=== PATIENT | female | born 2000 | race Two or more races ===

== ENCOUNTER → 2023-05-28 | Emergency (ER) | payer BC ==
[~2023-05-28] VITALS: Ht 162.6 cm; Wt 51.7 kg
[~2023-05-28] MED LIST: 0.9 % SODIUM CHLORIDE 1,000 ML IV SCH; DEXTROSE 5 % AND 0.9 % NACL 1,000 ML IV SCH; FAMOtidine 10 MG/ML (4ML VIAL) IV SCH; KETOROLAC TROMETHAMINE 30 MG VIAL IV ONE; ONDANSETRON HCL 2 MG/ML VIAL IV SCH
[2023-05-28 18:19] LABS: HEMATOCRIT 34.3 % (36.0-45.00); HEMOGLOBIN 11.4 g/dL (12.0-15.00); MEAN CELL VOLUME 85.4 fL (80.00-100.00); MEAN CORPUSCULAR HEMOGLOBIN 28.4 pg (27.00-32.0); MEAN CORPUSCULAR HGB CONC 33.2 g/dl (32.0-36.0); PLATELET COUNT 294 K/uL (150-450); RED BLOOD COUNT 4.02 M/uL (4.00-6.00); RED CELL DISTRIBUTION WIDTH 14.5 % (11.5-14.5)
[2023-05-28 19:31] LABS: URINE APPEARANCE Clear; URINE BACTERIA 133.5 uL (0.0-1933); URINE BILIRRUBIN Negative (NEGATIVE); URINE BLOOD Negative; URINE COLOR Yellow; URINE EPITHELIAL CELLS 29.6 uL (0.0-38.8); URINE GLUCOSE Negative (NEGATIVE); URINE LEUKOCYTE Negative; URINE NITRATE Negative; URINE PROTEIN Negative (NEGATIVE); URINE RBC 5.1 uL (0.0-20.8); URINE UROBILINOGEN 0.2 E.U./dl; URINE WBC 1.8 uL (0.0-23.2)
[2023-05-28 21:01] LABS: ALBUMIN 3.2 gm/dL (3.4-5.0); BILIRUBIN TOTAL 0.26 mg/dL (0.3-1.2); CALCIUM 8.3 mg/dL (8.5-10.1); CREATININE SERUM 0.48 mg/dL (0.55-1.02); GFR 164.88; GLOBULINA 3.3 G/DL (2.4-3.5); POTASSIUM 3.34 mEq/L (3.5-5.1); TOTAL PROTEIN 6.5 gm/dL (6.4-8.2)
[2023-05-28 21:27] LABS: AMYLASE 72 U/L (25-115); LIPASE 28 U/L (13-75)
[2023-05-28 22:52] LABS: ALT/SGPT 19 U/L (12-78); AST/SGOT 14 U/L (15-37); LDH 148 U/L (84-246); PHOSPHOKINASE CREATININE 82 U/L (26-192)
== END | disposition home or self-care (01) ==
LOC: EMR PED 16:38 → ER 16:38 → EMR PED 17:11
PROVIDERS: Emergency Medicine Pediatric Emergency Medicine
DX: R10.13 Epigastric pain (principal); H92.02 Otalgia, left ear; R10.9 Unspecified abdominal pain; Z20.822 Contact with and (suspected) exposure to COVID-19